=== PATIENT | male | born 1985 ===

== ENCOUNTER 2017-09-11 13:54 | Emergency (ER) | payer BC ==
[2017-09-11] MEDS ORDERED: Sodium Chloride 0.9% 10 ML Syringe FLUSH PRN (13:55)
[2017-09-11] MEDS ORDERED: Lactated Ringers 1,000 ML IV SCH (14:00)
[2017-09-11] MEDS ORDERED: HYDROmorphone 1 MG/ML Syringe ONE ×2 (14:23→15:00)
[2017-09-11] MEDS ORDERED: HYDROmorphone 1 MG/ML Syringe IVPUSH ONE ×2 (14:25→15:05)
[2017-09-11] MEDS ORDERED: fentaNYL 100 MCG/2 ML SDV IVPUSH ONE (14:53)
[2017-09-11] MEDS ORDERED: ceFAZolin 1,000 MG VIAL IVPUSH ONE (15:04)
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
[2017-09-11] MEDS ORDERED: ceFAZolin 2 GM in Premix Bag 1 BAG IV ONE (15:07)
--- NOTE | 2017-09-16 10:17 | CR ---
Left tibia and fibula: AP and lateral views of the left tibia and fibula were obtained. Comparison: No prior study. Small spur is noted at the attachment of the Achilles tendon to the calcaneus. Fractures are seen within the foot which will be described on subsequent foot exam. No fracture or other abnormality is seen within the tibia and fibula. Impression: 1. Foot fracture. Left tibia and fibula study show no other acute abnormality. Diagnostic code #3
--- NOTE | 2017-09-16 10:17 | CR ---
Right tibia and fibula: AP and lateral views of the right tibia and fibula were obtained. Small spur is noted at the attachment of the Achilles tendon to the calcaneus. No fracture or other abnormality is seen. Impression: 1. Incidental finding. Nothing acute is seen on right tibia and fibula study. Diagnostic code #2
--- NOTE | 2017-09-16 10:17 | CR ---
Left foot: Two views of the left foot were obtained. Displaced fractures are identified within the mid to distal shaft of the second, third and fourth metatarsals. Soft tissue swelling is identified. No additional fracture or other abnormality is seen. Impression: 1. Displaced fractures within the second through fourth metatarsals. Diagnostic code #3
--- NOTE | 2017-09-16 10:17 | CT ---
Head CT Technique: Multiple axial sections through the brain were obtained. Intravenous contrast was not utilized. Comparison: No prior intracranial imaging. Findings: Ventricles along with basal cisterns and sulci over the convexities are within normal limits. Very minimal increased density seen near the junction of the posterior frontal and parietal junction. This could be artifact versus very minimal petechial cortical hemorrhage. No other findings of intracranial hemorrhage. No midline shift or mass effect is seen. Bone window settings were reviewed which show no acute calvarial abnormality. Visualized sinuses are clear. Impression: 1. Very minimal findings near the junction of the posterior frontal and parietal region. As mentioned above, this could be artifact versus very minimal petechial hemorrhage within the cortex. 2. No additional abnormality is identified on noncontrast head CT exam. Diagnostic code #3 I agree with preliminary report issued by [facility] ([facility] report finalized on 09/11/17, 3:38 PM Central Time)
--- NOTE | 2017-09-16 11:27 | CT ---
CT cervical spine Technique: Multiple axial sections through the cervical spine were obtained from above C1 inferiorly to the bottom of T2. Reconstructed sagittal and coronal images were reviewed. Comparison: No prior study. Findings: Vertebral body heights and disc spaces are maintained. Visualized sinuses and middle ear cavities are clear. Posterior skull base is intact. Vertebral bodies and posterior arches are intact with no fracture being seen. Mild right sided neural foraminal stenosis noted at C3-C4. Other neural foramina are patent. No central canal stenosis is seen. No abnormal subluxation is seen. Impression: 1. Slight right-sided neural foraminal stenosis noted at C3-C4. 2. Nothing acute is appreciated on CT study of the cervical spine. Diagnostic code #2 I agree with preliminary report issued by [facility] ([facility] report finalized on 09/11/17, 3:40 PM Central Time)
--- NOTE | 2017-09-16 11:27 | CT ---
CT chest Technique: Multiple axial sections through the chest were obtained. Intravenous contrast was utilized. Findings: Mediastinum and hilar regions appear within normal limits. Opacified great vessels appear within normal limits as seen. No pericardial thickening is seen. No mediastinal mass or adenopathy is identified. Lungs are clear with no pulmonary contusion. No pleural effusions or pneumothorax are identified. Bone window settings were reviewed which shows no acute osseous abnormality. Impression: 1. No abnormality is identified on CT study of the chest. Diagnostic code #1 I agree with preliminary report issued by [facility] ([facility] report finalized on 09/11/17, 3:49 PM Central Time) CT abdomen and pelvis Technique: Multiple axial sections were obtained from above the dome of the diaphragm inferiorly through the pubic symphysis. Intravenous contrast was utilized. No oral contrast has been given. Findings: Liver shows no focal parenchymal abnormality. Spleen appears within normal limits. Adrenal glands show no nodule. Pancreas is within normal limits. Gallbladder contains no calcified gallstones. Kidneys show symmetric contrast enhancement and appear within normal limits. Aorta has no aneurysm. No retroperitoneal adenopathy is seen. No mesenteric abnormalities are seen. Appendix is seen which appears normal. No pelvic mass or adenopathy is seen. No free fluid or inflammatory change is seen within the abdomen or pelvis. Bone window settings were reviewed which show no acute osseous abnormality. Delayed images show contrast excretion into both ureters without any contrast extravasation. Contrast seen within the bladder. Impression: 1. Nothing acute is appreciated on CT study of the abdomen and pelvis. Diagnostic code #1 I agree with preliminary report issued by [facility] ([facility] report finalized on 09/11/17, 3:49 PM Central Time)
== END 2017-09-11 15:35 ==
LOC: MERGE 13:54 → JD.ED 13:54 → EDBD 13:54 → JD.ED 15:35
DX: S06.6X0A Traumatic subarachnoid hemorrhage without loss of consciousness, initial encounter (principal); S92.322B Displaced fracture of second metatarsal bone, left foot, initial encounter for open fracture; V97.89XA Other air transport accidents, not elsewhere classified, initial encounter
CPT/HCPCS: 29515; 36415; 70450; 71260; 72125; 73590; 73620; 74177; 80053; 83690; 85025; 96361; 96365; 96374; 96375; 99285; G0390; G0480; J0690; J1170; J3010; J7050; J7120